=== PATIENT | female | born 1985 | race Caucasian/White ===

== ENCOUNTER 2019-02-24 17:33 | Emergency (ER) | payer MEDICAID, OTHER ==
[~2019-02-24] VITALS: Ht 165.1 cm; Wt 130.0 kg
[2019-02-24 17:36] VITALS: BP 145/93
[2019-02-24] MEDS ORDERED: ASPI-81 PO (17:52)
[2019-02-24] MEDS ORDERED: UBID10CA6 PO (17:52)
== END 2019-02-24 20:19 | disposition left against medical advice (07) ==
LOC: EMS 17:36
DX: M54.6 Pain in thoracic spine (principal); Z53.21 Procedure and treatment not carried out due to patient leaving prior to being seen by health care provider